=== PATIENT | female | born 1970 | race Caucasian/White ===

== ENCOUNTER 2021-05-15 00:33 | Emergency (ER) | payer OTHER ==
[~2021-05-15] VITALS: Ht 162.6 cm; Wt 80.3 kg
[2021-05-15] MEDS ORDERED: MELOXICAM15 MG PO (01:35)
[2021-05-15] MEDS ORDERED: TORADOL 10 MG T10 MG PO (01:35)
[2021-05-15] MEDS ORDERED: ULTRAM 50MG TAB50 MG PO (01:35)
[2021-05-15 02:04] VITALS: BP 155/80
== END 2021-05-15 02:04 | disposition home or self-care (01) ==
LOC: M.ERS 00:33
DX: M77.8 Other enthesopathies, not elsewhere classified (principal); M25.531 Pain in right wrist; M25.532 Pain in left wrist; M25.522 Pain in left elbow; Z98.890 Other specified postprocedural states; Z98.51 Tubal ligation status; Z88.8 Allergy status to other drugs, medicaments and biological substances

== ENCOUNTER 2021-09-16 14:51 | Emergency (ER) | payer OTHER ==
[~2021-09-16] VITALS: Ht 162.6 cm; Wt 81.7 kg
[~2021-09-16 14:51] MED LIST: MELOXICAM15 MG PO; TORADOL 10 MG T10 MG PO; ULTRAM 50MG TAB50 MG PO
[2021-09-16] MEDS ORDERED: FLEXERIL PO (16:37)
[2021-09-16] MEDS ORDERED: HYDROCODON-ACE1 EAC7 PO (16:37)
[2021-09-16 16:57] VITALS: BP 157/101
== END 2021-09-16 16:58 | disposition home or self-care (01) ==
LOC: M.ERS 14:51
DX: S20.212A Contusion of left front wall of thorax, initial encounter (principal); Z98.890 Other specified postprocedural states; Z98.51 Tubal ligation status; Z88.8 Allergy status to other drugs, medicaments and biological substances; W18.09XA Striking against other object with subsequent fall, initial encounter; Y93.89 Activity, other specified; Y92.89 Other specified places as the place of occurrence of the external cause; Y99.8 Other external cause status